=== PATIENT | male | born 1955 | race Caucasian/White ===

== ENCOUNTER 2016-06-21 09:43 | Inpatient (IN) | payer OTHER ==
[~2016-06-21] VITALS: Ht 188 cm; Wt 107.9 kg
[2016-06-21] VITALS (23 sets, daily range): BP systolic 133–163; BP diastolic 74–89; PULSE 54–89; RESP 12–21; O2SAT 92–98
[2016-06-21] MEDS: Lactated Ringer's 1,000 ML IV SCH ×4 (05:00→16:35)
[2016-06-21] MEDS: CeFAZolin Inj 2 GM in IV Premix 1 EACH IV SCH ×2 (06:00→13:00)
--- NOTE | 2016-06-21 06:39 | PCM.HPANE ---
Patient Data Surgeon Admitting Provider: Attending Provider:Lida Villegas MD Primary Care Physician:Other,Physician Other Provider:Torsten Villatoro Anesthesia Reason for Visit Left Renal Mass Ht/WT & BMI Height (Feet): 6 Height (Inches): 2 Weight (Kilograms): 112.94 Body Mass Index 31.00 Allergies Coded Allergies: No Known Allergies (Unverified , 06/18/16) Past Anesthesia History Anesthesia History: Denies:: Anesthesia Reactions Diabetes History Hx Diabetes?: No (pre diabetic- ) MRSA MRSA: No Medications Hypertension Medication: No Home Meds Incl Beta Rodger: No Reported Medications Ranitidine (Zantac)150 Mg [id number] Mg PO DAILY 06/18/16 Simvastatin 20 Mg [id number] Mg PO DAILY Ref 0 06/18/16 History History of ENT Problems?: Yes HEENT History: Positive for:: Hearing Problem TMJ (grinds rarely) Denies:: Cataracts Glaucoma Denture Type: None Teeth Condition: Within Normal Limits Other HEENT Pertinent History: has lost bridge, not yet replaced Hx of Heart Problems?: No Cardiovascular History: Denies:: AICD Abdominal Aortic Aneurism Atrial Fibrillation Heart Murmur Hypertension Irregular Heartbeat Pacemaker Peripheral Vascular Hx of Respiratory Problem?: No Respiratory History: Positive for:: Pneumonia (hx of 6-7 years ago) Denies:: Asthma COPD Emphysema Oxygen Administration Tuberculosis Use of C-PAP Machine Use of Inhalers / NEBS Hx Neurologic Problems?: No Neurological History: Denies:: CVA Dementia Dizziness Headaches Multiple Sclerosis Parkinson's Disease Seizures TIA Hx of GI Problems?: Yes Hx of Problems?: Yes Other Pertinent History: left renal mass current admission problem, past hx urethral dilations Male Hx: Denies:: Prostate Problems Scrotal Mass Testicular Surgery Skin History: Denies:: History Skin Disorders? Pressure Ulcers Hx Musculoskeletal Problems?: No Musculoskeletal History: Denies:: Fibromyalgia Joint Replacement Musculoskeletal Trauma Myasthenia Gravis Osteoarthritis Hx of Psycho/Social Problems?: No Psycho Social History: Denies:: Anxiety Hx Depression Hx Surgeries?: Yes (cysto, bladder surgery, urethral dil, tonsil) Hx Any Other Health Problems?: Yes Other History: Denies:: Cancer Thyroid Disease History Blood Transfusions: Positive for:: Accept Blood Products? Denies:: Blood Transfusions Hx Diabetes: No (pre diabetic- ) Hx Alcohol Use: YesAlcoholic Drinks Per Day: one drink a few times yearlyHx Substance Use: NoHave You Smoked inLast 12 mo: No Stop/Bang S-Snoring: Do You Snore Loudly: No T-Tired: feel tired, fatigued: No O-Obsered: Observed not breath: No P-Blood Pressure: treated: No B- Body Mass Index > 35 kg/m2: No A- Age over 50: Yes N- Neck Large Circumference: Yes G- Gender Male: Yes BLANCHE Total Score: 3 BLANCHE Risk Assessment: Low Risk, <3 Yes Risk Assessment Category Category 1A: Patient has history of documented sleep apnea, and HAS NOT received any narcotic, sedative or anesthesia administration during this stay. Category 1B: Patient has history of documented sleep apnea, and HAS received any narcotic , sedative or anesthesia administration during this stay Category 2: Patient has SUSPECTED Obstructive Sleep Apnea, and HAS received any narcotic , sedative or anesthesia administration during this stay. Category 3: Patient has SUSPECTED Obstructive Sleep Apnea and HAS NOT received narcotic, sedative or anesthesia administration during this stay. Category 4: Outpatient in Procedural Areas with known sleep apnea or who screen positive for High Risk via the STOP/BANG questionnaire. Exam Exam General Appearance: Alert, Oriented X3, Cooperative, No Acute Distress HEENT/AIRWAY: MP 2, Neck Movement (FROM), Mouth Opening (3-4FV) Lungs: Normal Air Movement Heart: Exam Unremarkable Plan Impression Patient chart reviewed, patient interviewed and anesthestic plan with risks, benefits, and alternatives discussed, and informed consent obtained. ASA Physical Status: ASA2 Mod Systemic Disease Anesthetic Plan: GA, Epidural (for post-op pain management) Bene/Risks/Altern/Consents: Yes HP Complete Prior to Induction: Yes Cain Pina MD June 21, 2016 06:39
[~2016-06-21 09:43] MED LIST: RANI150T11 PO; SIMV20TA4 PO
[2016-06-21 10:35] LABS: BASOPHILS % (AUTO) 0.3 % (0-3); Mean Corpuscular Hemoglobin 30.7 pg (27.0-35.0); Mean Corpuscular Volume 89.2 fL (81-100); Platelet Count 212 bil/L (150-400)
[2016-06-21] MEDS ORDERED: Bupivacaine 0.5%/EPI 50 mL Inj INFILTRATE ONE (13:53)
[2016-06-21] MEDS ORDERED: Lactated Ringer's 500 ML IV PRN (13:58)
[2016-06-21] MEDS ORDERED: Lactated Ringer's 1,000 ML IV SCH (13:58)
[2016-06-21] MEDS ORDERED: Dexamethasone 4 mg/mL Inj IVPUSH PRN (14:00)
[2016-06-21] MEDS ORDERED: EPHEDrine Sulfate 50 mg/mL Inj IVPUSH PRN (14:00)
[2016-06-21] MEDS ORDERED: Atropine 1 mg/mL Inj IVPUSH PRN (14:00)
[2016-06-21] MEDS ORDERED: Albuterol-Ipratropium 3 mL Inhalation Solution NEB PRN (14:00)
[2016-06-21] MEDS ORDERED: Ondansetron 2 mg/mL 2 mL Inj IVPUSH PRN ×4 (14:00→14:35)
[2016-06-21] MEDS ORDERED: MetoCLOpramide 5 mg/mL 2 mL Inj IVPUSH PRN ×3 (14:00→14:35)
[2016-06-21] MEDS ORDERED: HYDROmorphone 1 mg/mL Inj IVPUSH PRN ×2 (14:00→14:35)
[2016-06-21] MEDS ORDERED: EPHEDrine Sulfate 50 mg/mL Inj IV PRN (14:00)
[2016-06-21] MEDS ORDERED: fentaNYL-PF 50 mCg/mL 2 mL Inj IVPUSH PRN ×2 (14:00)
[2016-06-21] MEDS ORDERED: Phenylephrine 10,000 mCg/mL Inj IVPUSH PRN (14:00)
[2016-06-21] MEDS ORDERED: fentaNYL 2 mCg/mL-Bupivicaine 0.125% 100 mL Premix EPIDURAL ONE (14:19)
[2016-06-21] MEDS ORDERED: HYDROmorphone PCA 0.2 mg/mL 30 mL Inj IV PRN ×4 (14:35)
[2016-06-21] MEDS ORDERED: HYDROmorphone 0.5 mg/0.5 mL iSecure Syringe IVPUSH PRN (14:35)
[2016-06-21] MEDS ORDERED: Polyethylene Glycol (PEG) 17 Gm Powder PO PRN (14:35)
[2016-06-21] MEDS: Dextrose 5% 500 ML IV SCH (14:35)
[2016-06-21] MEDS ORDERED: diphenhydrAMINE 25 mg Capsule PO PRN (14:35)
--- NOTE | 2016-06-21 14:50 | PCM.ANEP1 ---
Post Anesthesia Phase 1 PACU Phase 1 Assessment Vital Signs see anesthesia record Vital Signs Date Time Temp Pulse Resp B/P Pulse Ox O2 Delivery O2 Flow Rate FiO2 06/21/16 10:08 36 54 16 138/89 96 Room Air Anesthetic Administered: GA, Epidural Level of Alertness: Sleepy, easy to arouse ROSS's with Equal Strength: Yes Pain: No Nausea or Vomiting: No Cardiovascular Function and Hy: Yes Oxygen Delivery: Room Air Lungs: Normal Air Movement Dermatome Level: T10 (Umbilicus) Complications: No Follow up Care: No Cain Pina MD June 21, 2016 14:50
[2016-06-21] MEDS: Sodium Chloride LOK Flush 10 mL Syringe IVFLUSH SCH (16:34)
[2016-06-21] MEDS ORDERED: Rocuronium 10 mg/mL 5 mL Inj ONE (17:37)
[2016-06-21] MEDS ORDERED: Dexamethasone 4 mg/mL Inj ONE (17:37)
[2016-06-21] MEDS ORDERED: Neostigmine 1 mg/mL 10 mL Inj ONE (17:37)
[2016-06-21] MEDS ORDERED: Glycopyrrolate 0.2 MG/ML 1mL Inj ONE (17:37)
[2016-06-21] MEDS ORDERED: Ondansetron 2 mg/mL 2 mL Inj ONE (17:37)
[2016-06-21] MEDS ORDERED: fentaNYL-PF 50 mCg/mL 2 mL Inj ONE (17:37)
[2016-06-21] MEDS ORDERED: Propofol 10,000 mCg/mL 20 mL Inj ONE (17:37)
[2016-06-21] MEDS ORDERED: EPHEDrine/NS 5 mg/mL 5 mL Syringe ONE (17:37)
[2016-06-21] MEDS ORDERED: Lidocaine PF 1% 30 mL Inj ONE (17:37)
[2016-06-21] MEDS ORDERED: Succinylcholine Chloride 20 mg/mL 5 mL Inj ONE (17:37)
[2016-06-21] MEDS ORDERED: Lidocaine 2%-Epi 1:100,000 20 mL Inj ONE (17:37)
--- NOTE | 2016-06-21 18:24 | NUR ---
POST-OP Patient received from PACU via a hospital bed. Weaned off O2. PO2 in the mid 90's at this time. IVF ongoing. Epidural is ongoing at this time. Patient rated his pain as 4/10, which is tolerable for him. Denies nausea. No emesis noted. Denies SOB. Dressing is CDI. IFC intact and draining to doug colored UO. Oriented to room and call light.
--- NOTE | 2016-06-21 22:12 | OP ---
[address] [address] OPERATIVE REPORT PATIENT: CAIN SEYMOUR : 1955 MR#: [id number] ADMIT: 06/21/2016 JOB ID: [id number] DATE OF SURGERY: 06/21/2016 SURGEON: Lida Villegas MD PREOPERATIVE DIAGNOSIS(ES): Left renal cell carcinoma. POSTOPERATIVE DIAGNOSIS(ES): Left renal cell carcinoma. PROCEDURE: Laparoscopic left radical nephrectomy. DYE EXPERT: Char Munoz PA-C ANESTHESIA: Cain Pina MD. ANESTHETIC: Epidural catheter with general anesthesia. DESCRIPTION OF PROCEDURE: After placement of an epidural catheter and induction of general anesthesia, the patient was placed in the left flank position. An 8 cm hand port incision was made centered on the umbilicus. A 5 mm camera port was made at the lateral border of the rectus sheath 2 cm below the costal margin. A 12 mm operating port was made at the lateral border of the rectus sheath at the upper edge of the gel port. The abdomen was insufflated. A few small adhesions lateral to the kidney were taken down. The peritoneum was incised with the lateral border of the descending colon and the splenic flexure reflected medially. Gonadal vein was exposed and traced upwards to expose the renal vein. The renal vein was dissected free above and below. The renal vein and renal artery were crossclamped using an Endo PAULY stapler. The remaining attachments of the kidney were divided with the Thunderbeat device or hook cautery. At the upper pole of the kidney, Gerota's fascia was entered and the adrenal gland from the kidney and left behind. After all attachments were divided, the kidney was removed from the abdomen. Inspection revealed complete hemostasis. Incisions were then closed with #1 Vicryl for the hand port and ludivina for skin with both camera, working port and hand port. The patient tolerated the procedure well. The estimated blood loss was negligible. The patient left the operating room in good condition with clear urine draining from his Vásquez catheter.
[2016-06-21] MEDS: fentaNYL 2 mCg/mL-Bupiv 0.125% 250 ML in IV Premix 1 EACH EPIDURAL SCH (22:56)
[2016-06-22] MEDS: Lactated Ringer's 1,000 ML IV SCH ×4 (03:15→22:34)
[2016-06-22] MEDS: Sodium Chloride LOK Flush 10 mL Syringe IVFLUSH SCH ×3 (03:15→16:30)
--- NOTE | 2016-06-22 04:08 | NUR ---
Post Op Pain Pt reports good pain control with epidural. Epidural infusion changed late, air noted in line. Anesthesiologist contacted, approved new bag without change in line. Full sensation, moves all extremities. High volume of urine output in keller. IV fluids infusing. Eager to get out of bed in AM. Tolerating PO intake without nausea. Hydrating orally well. Hourly rounding ongoing.
[2016-06-22 05:24] VITALS: BP 103/56; PULSE 67; RESP 17; O2SAT 94
[2016-06-22 05:31] LABS: Mean Corpuscular Hemoglobin 30.2 pg (27.0-35.0); Mean Corpuscular Volume 89.6 fL (81-100)
[2016-06-22 06:30] VITALS: RESP 18
[2016-06-22] MEDS: fentaNYL 2 mCg/mL-Bupiv 0.125% 250 ML in IV Premix 1 EACH EPIDURAL SCH (07:58)
--- NOTE | 2016-06-22 13:16 | PROG NOTE ---
[address] [address] PROGRESS NOTE PATIENT: ANTWAN SEYMOUR : 1955 MR#: [id number] ADMIT: 06/21/2016 JOB ID: [id number] DATE: 06/22/2016 SUBJECTIVE: Postop day one laparoscopic left radical nephrectomy. Vital signs are stable. Patient is afebrile. LABORATORY VALUES: Hematocrit stable at 40.7. Mild elevation of white count. Chemistry shows an appropriate increasing creatinine to 1.64. PHYSICAL EXAMINATION: On examination, the patient is alert, fit, oriented with pain well controlled. Abdominal incisions are clean and dry. The patient is tolerating a normal diet. I plan on turning off his epidural catheter tomorrow and see how he manages with oral pain meds only. If he is able to tolerate only oral medications, then we can consider discharge. Vásquez catheter will be removed today. He is aware that there may be some difficulty voiding because of the epidural.
[2016-06-22 13:41] VITALS: BP 113/66; PULSE 74; RESP 17; O2SAT 92
[2016-06-22] MEDS: Dextrose 5% 500 ML IV SCH (14:35)
--- NOTE | 2016-06-22 15:48 | NUR ---
Social Work: Initial Screening D: EMR reviewed. Pt is a 60 y/o male admitted for left renal mass per H&P. SW met with pt at bedside to conduct initial assessment. Pt was alert and oriented x3. Pt's insurance is [employer] Pt lives at home with spouse in [place]. Pt has not completed DPOA/advanced directive ppw. SW provided pt with DPOA/advanced directive ppw and encouraged pt to provide a copy to the hospital when completed. Pt to transport home with spouse Jie via POV when medically stable. SW does not anticipate any discharge needs at this time. SW will continue to follow if needs arise. A: Pt who is independent at baseline. P: Pt to discharge home with spouse via POV when medically stable. No anticipated discharge needs at this time. SW will continue to follow if needs arise. HARRIS Hernandez
--- NOTE | 2016-06-22 19:00 | PROG NOTE ---
[address] [address] PROGRESS NOTE PATIENT: ANTWAN SEYMOUR : 1955 MR#: [id number] ADMIT: 06/21/2016 JOB ID: [id number] DATE: 06/22/2016 CHIEF COMPLAINT/IDENTIFICATION: The patient is a 60-year-old male, postoperative day 1 from laparoscopic left radical nephrectomy. SUBJECTIVE: The patient notes that his pain is very well controlled today. At rest, he rates his pain 0/10 while seated during our interview. With coughing and movement, he notes that his pain occasionally goes up to moderate level, approximately 5/10. His epidural infusion rate is stable at 8 cc per hour with occasional patient controlled bolus. He has noted no concerning epidural findings such as leg weakness, back tenderness, orthostasis. He has been afebrile and is currently tolerating thus far low volume full liquid diet. He denies having any flatus or bowel movements. OBJECTIVE: Vital Signs: Over the last 24 hours are reviewed and reveal that he has been normothermic with normal and stable vital signs including normal pulse rate, normal blood pressure. He is off oxygen, satting in the low 90s. Respiratory rates have been in the teens. Exam: Alert, oriented, conversant and pleasant. Skin: Evaluation of his epidural insertion site in lower thoracic region demonstrates an intact dressing with scant serosanguineous fluid underneath the dressing. The insertion site is otherwise normal appearing without erythema or induration. There is no palpable back tenderness. Musculoskeletal: The patient has 5/5 strength in bilateral hip flexors. LABORATORY DATA: Platelet count is 213. MEDICATION ADMINISTRATION RECORD: Review of his medications demonstrates that he is on no anticoagulant medicines. He is ordered as needed oxycodone and hydromorphone; neither of which has he received. ASSESSMENT: This patient is a 60-year-old male, postoperative day 1 from left laparoscopically aided nephrectomy. He is doing very well from an analgesia perspective. PLAN: My plan is to continue the epidural and analgesic regimen as currently ordered. Anticipate that as his ileus resolves in the next day or two that he will transition to an oral pain regimen uneventfully. At that time, his epidural catheter will be removed, however will keep things as is over the course of the day into tomorrow.
--- NOTE | 2016-06-22 19:31 | NUR ---
Vásquez d/c Vásquez removed at 1630. Patient has not voided at this time. Oncoming nurse aware.
[2016-06-22 19:36] VITALS: BP 131/76; PULSE 71; RESP 20; O2SAT 94
[2016-06-23 00:20] VITALS: BP 121/72; PULSE 73; RESP 18; O2SAT 96
[2016-06-23] MEDS: Sodium Chloride LOK Flush 10 mL Syringe IVFLUSH SCH ×2 (00:30→08:30)
[2016-06-23] MEDS: fentaNYL 2 mCg/mL-Bupiv 0.125% 250 ML in IV Premix 1 EACH EPIDURAL SCH (01:48)
[2016-06-23 05:10] VITALS: BP 120/72; PULSE 68; RESP 17; O2SAT 96
--- NOTE | 2016-06-23 06:21 | NUR ---
Activity Patient ambulated halls without complications. Voiding spontaneously this shift after Vásquez d/c'ed on previous shift. Denies pain and or discomfort at this time. will continue plan of care.
[2016-06-23] MEDS: Lactated Ringer's 1,000 ML IV SCH ×2 (06:37→14:35)
[2016-06-23] MEDS: oxyCODONE-Acetamin 5-325 mg Tablet PO PRN ×3 (09:13→17:32)
[2016-06-23 13:03] VITALS: BP 157/89; PULSE 76; RESP 16; O2SAT 93
--- NOTE | 2016-06-23 14:09 | NUR ---
Epidural Epidural DC'd and intact. Patient tolerating oral pain medications. Patient reported 5/10 abdominal pain. 1 tab Percocet given. Patient denies nausea. Patient up independent in room. Repositions self for comfort. Call light and tray table within reach. Will continue to monitor patient hourly.
--- NOTE | 2016-06-23 14:11 | PROG NOTE ---
[address] [address] PROGRESS NOTE PATIENT: ANTWAN SEYMOUR : 1955 MR#: [id number] ADMIT: 06/21/2016 JOB ID: [id number] DATE: The patient is a 60-year-old male, postoperative day two, status post laparoscopic left radical nephrectomy. SUBJECTIVE: The patient had his epidural infusion stopped this morning by Dr. Villegas. He has had oral pain medications. He states his pain is currently 2/10 and was 4/10 prior to his oral analgesic. He denies any itching today. OBJECTIVE: Vital signs are stable. He is a afebrile. Exam: His skin is clean, dry, and intact. ASSESSMENT AND PLAN: A 60-year-old male, postoperative day two, already with his epidural infusion stopped by the surgeon. Transitioning well to oral analgesics. I will ask nurse on the floor to remove the epidural catheter. Analgesia per primary team. Thank you for the consult. DUGLAS
[2016-06-23] MEDS: Dextrose 5% 500 ML IV SCH (14:35)
--- NOTE | 2016-06-23 14:46 | NUR ---
Social Work: Readiness for Discharge D: EMR reviewed. Pt is on day 2 of hospitalization for left renal mass. Per bank vault clerk in rounds, pt to discharge when pain in controlled. Pt to transport home with spouse Jie via POV when medically stable. No discharge needs identified at this time. SW will continue to follow. A: Pt who is independent at baseline. P: Pt to discharge home with spouse via POV when medically stable. No anticipated discharge needs at this time. SW will continue to follow if needs arise. Antonette Araujo MSW
--- NOTE | 2016-06-23 16:52 | DIS ---
[address] [address] DISCHARGE SUMMARY PATIENT: ANTWAN SEYMOUR : 1955 MR#: [id number] ADMIT: 06/21/2016 JOB ID: [id number] DIS: 06/23/2016 CORRECTED REPORT: DATE: PROGRESS NOTE/DISCHARGE SUMMARY: Postop day two laparoscopic left radical nephrectomy. Vital signs are stable. Patient is afebrile. The abdomen is soft. The incisions are clean and dry. The patient is tolerating discontinuation of his epidural catheter and managing quite nicely with oral analgesics. He is presently tolerating regular diet, ambulating well, and passing gas. PLAN: Discharge home today. I will see him in followup at the end of next week. Corrected by PAPO 06/25/16 at 7:44am Report type.
--- NOTE | 2016-06-23 17:46 | NUR ---
Discharge Patient discharged home. IV DC'd and intact. Dressing CDI. Discharge instructions given with no questions. RX Percocet given. Patient gathered all belongings. ACID BLEACHER escorted patient out via W/C.
--- NOTE | 2016-06-25 07:41 | PROG NOTE ---
[address] [address] PROGRESS NOTE PATIENT: ANTWAN SEYMOUR : 1955 MR#: [id number] ADMIT: 06/21/2016 JOB ID: [id number] DATE: 06/22/2016 PROGRESS NOTE: Postoperative day two left radical laparoscopic nephrectomy. The patient is tolerating regular diet. Pain control is good with the epidural catheter. Epidural catheter was stopped this morning. We will try him on oral analgesics. He is tolerating oral analgesics well with good pain control. He can be discharged later today. Otherwise, the epidural catheter will be restarted. Afebrile. Vital signs stable. Abdomen is soft. Good bowel sounds. Incision is clean and dry. Vásquez catheter has been removed. He is voiding well without difficulty, and he is passing gas. PLAN: Discharge once adequate pain control has been established.
--- NOTE | 2016-06-28 13:38 | PATH ---
SURGICAL PATHOLOGY Attending Physician:Lida Villegas MD () CASE STATUS: Signed Out PATIENT NAME: ANTWAN SEYMOUR PID: [id number] : 11/15/1950 DATE COLLECTED:06/21/2016 00:00 SPECIMEN: Kidney, Radical Nephrectomy for Tumor CLINICAL HISTORY: LEFT RENAL MASS 1). LEFT KIDNEY FINAL DIAGNOSIS: CAP SUMMARY REPORT Specimen: Kidney with ureter and adrenal gland Specimen Laterality: Left Procedure: Radical nephrectomy Tumor Site: Upper pole Tumor Size: Greatest dimension: 3.3 x 3.3 x 3.0 cm Tumor Focality: Unifocal Histologic Type: Renal cell carcinoma, unclassified (please see comment) Sarcomatoid Features: Not identified Rhabdoid Features: Not identified Histologic Grade: G1 Tumor Necrosis: Absent Anatomic Extent of Tumor: Tumor is limited to kidney Margins: Uninvolved by invasive carcinoma Lymphovascular Invasion: Not identified Regional Lymph Nodes: No lymph nodes found Tumor does not involve the renal vein, renal artery, or ureter. Pathologic Staging: pT1 ICD10 code C64.9 NOTE: The exact type of renal cell carcinoma is not apparent. The specimen will be sent for outside consultation. GROSS DESCRIPTION: The specimen is received in formalin, labeled with the patient's name, sublabeled as left kidney and consists of a kidney (12.5 x 6.8 x 6.3 cm) with attached ureter (length-3.5 cm, diameter-0.3 cm), renal artery (length-0.9 cm, diameter-0.2 cm), renal vein (length-1.5 cm, diameter-2.2 cm) and renal adipose (up to 5.5 cm in depth). A scant amount of unremarkable yellow-orange adrenal parenchyma is attached. The upper pole contains a carlson-white hemorrhagic solid rubbery well-circumscribed mass (3.3 x 3.3 x 3.0 cm). The mass is 6.7 cm from the ureteric, 4.7 cm from the renal, and 5.3 cm from the venous resection margins. The mass pushes outward on the capsule beyond the normal renal contour but does not extend through. The mass does not involve the renal sinus or pelvis. The remaining parenchyma is red-brown with normal renal architecture. The capsule is red-brown smooth and shiny with focal pallor overlying the mass. No other nodules, masses, or lesions are identified. Section code: (A) ureteric and vasculature resection margins; (B-E) mass, full cross sectioned, quartered; (F-H) mass, pharmaceutical specialty representative; (I) normal renal parenchyma; (J) adrenal parenchyma, pharmaceutical specialty representative. 06/23/16 JM MICRO DESCRIPTION: The mass is composed of solid nests and sheets of homogenous-appearing epithelial cells. There is mild nuclear enlargement and moderate amounts of amphophilic cytoplasm. Nucleoli are not found within the nuclei. No papillary structures or foci of clear cytoplasm are found. Sections, along with appropriate controls, are incubated with the following antibodies: CK7:Negative CK10:Rare positive cells MOC-31:Negative BerEP4:Negative Vimentin:Positive E-Cadherin:Positive This test was developed and its performance characteristics determined by [facility]. It has not been cleared or approved by the U. S. Food and Drug Administration. The FDA has determined that such clearance or approval is not necessary. This test is used for clinical purposes. It should not be regarded as investigational or for research. ICD-9 CODES: CPT CODES: 1: 06946, 22486, 13570, 94220, 90056, 72012, 52047 Electronically Signed Out Jarrett Moss MD [facility] [address], [place] [address] Technical component performed at [facility], [address], [place], [address]
== END 2016-06-23 17:38 | disposition home or self-care (01) | DRG 658 ==
LOC: SAS 09:43 → OSC 16:19
PROVIDERS: ADMIT Urology; ATTEND Urology
PROC: 0TT14ZZ Resection of Left Kidney, Percutaneous Endoscopic Approach (ICD-10-PCS; principal; 2016-06-21 12:00)
DX: C64.2 Malignant neoplasm of left kidney, except renal pelvis (principal)